=== PATIENT | male | born 1935 | race Caucasian/White ===

== ENCOUNTER 2018-01-02 07:45 | Day surgery (SDC) | payer MEDICARE ==
[~2018-01-02] VITALS: Ht 180.3 cm; Wt 80.1 kg
[~2018-01-02 07:45] MED LIST: ASPI-555 PO; ATOR20TA65 PO; CLOP75TA32 PO; CYAN25002 SL; LISI1TAB13 PO; METO25TA6 PO; MULT-603 PO; SODIUM CHLORIDE 0.9% 1000ML 1,000 ML IV ONE
[2018-01-02 07:56] VITALS: BP 106/77
[2018-01-02] MEDS ORDERED: PROPOFOL 10 MG/ML 20ML VIAL IV ONE (10:04)
[2018-01-02 10:40] VITALS: BP 75/43
== END 2018-01-02 11:10 | disposition home or self-care (01) ==
LOC: ENDO 07:45 → DAH 07:45 → ENDO 11:10
PROVIDERS: ATTEND Internal Medicine Gastroenterology
DX: Z12.11 Encounter for screening for malignant neoplasm of colon (principal); K57.30 Diverticulosis of large intestine without perforation or abscess without bleeding; K56.2 Volvulus; Z86.010 Personal history of colon polyps; I10 Essential (primary) hypertension; E78.5 Hyperlipidemia, unspecified; Z79.899 Other long term (current) drug therapy; Z68.24 Body mass index [BMI] 24.0-24.9, adult; Z82.49 Family history of ischemic heart disease and other diseases of the circulatory system; Z98.890 Other specified postprocedural states
CPT/HCPCS: 93005; G0105; J2704; J7030

== ENCOUNTER → 2022-05-07 | Outpatient (CLI) | payer MEDICARE ==
[~2022-05-07] MED LIST changes: -ASPI-555 PO; +CEPH500B PO; -CLOP75TA32 PO; +LACT1CAP78 PO; -LISI1TAB13 PO; +LISI1TAB53 PO; +REGADENOSON 0.4 MG/5 ML PF SYG IVP SCH; -SODIUM CHLORIDE 0.9% 1000ML 1,000 ML IV ONE
== END | disposition home or self-care (01) ==
LOC: SHCH 08:13
PROVIDERS: ATTEND Internal Medicine Cardiovascular Disease
DX: I25.119 Atherosclerotic heart disease of native coronary artery with unspecified angina pectoris (principal)
CPT/HCPCS: 78452; 96374; 93017; J2785; A9500 ×2

== ENCOUNTER → 2023-04-24 | Outpatient (CLI) | payer MEDICARE ==
[~2023-04-24] MED LIST changes: -REGADENOSON 0.4 MG/5 ML PF SYG IVP SCH
[2023-04-24 16:13] LABS: T4 (THYROXINE) 5.4 ug/dL (4.7-13.3); THYROID STIMULATING HORMONE 1.03 uIU/mL (0.36-3.74)
== END | disposition home or self-care (01) ==
LOC: LAB 11:42
PROVIDERS: ATTEND Physician Assistant
DX: I10 Essential (primary) hypertension (principal); E78.5 Hyperlipidemia, unspecified
CPT/HCPCS: 36415; 84436; 84443; 84479

== ENCOUNTER → 2023-04-29 | Outpatient (CLI) | payer MEDICARE ==
[~2023-04-29] MED LIST changes: +REGADENOSON 0.4 MG/5 ML PF SYG IVP ONE
== END | disposition home or self-care (01) ==
LOC: SHCH 08:42
PROVIDERS: ATTEND Internal Medicine Cardiovascular Disease
DX: I25.119 Atherosclerotic heart disease of native coronary artery with unspecified angina pectoris (principal)
CPT/HCPCS: 78452; 96374; 93017; J2785; A9500 ×2

== ENCOUNTER 2023-08-05 10:01 | Inpatient (IN) | payer MEDICARE ==
[~2023-08-05] VITALS: Ht 182.9 cm; Wt 72.6 kg
[~2023-08-05 10:01] MED LIST changes: -REGADENOSON 0.4 MG/5 ML PF SYG IVP ONE
[2023-08-05 10:54] LABS: HEMATOCRIT 48.6 % (42-54); MEAN CORPUSCULAR HEMOGLOBIN 34.1 pg (27.0-33.0); MEAN CORPUSCULAR HGB CONC 35.4 g/dL (32.0-36.0); MEAN CORPUSCULAR VOLUME 96.2 fL (79-99); RED BLOOD CELL COUNT(AUTO) 5.05 MIL/uL (4.50-6.20); RED CELL DISTRIBUTION WIDTH 13.8 % (11.0-15.5); WHITE BLOOD COUNT (AUTO) 18.8 K/uL (4.8-10.8)
[2023-08-05 11:05] LABS: CREATININE 1.2 mg/dL (0.5-1.5); POTASSIUM 3.9 mmol/L (3.5-5.1)
[2023-08-05 11:09] LABS: ALBUMIN 3.9 g/dL (3.5-5.0); BILIRUBIN,TOTAL 1.5 mg/dL (0.2-1.0); TOTAL PROTEIN, SERUM 7.7 g/dL (6.0-8.3)
[2023-08-05 12:48] LABS: APPEARANCE,URINE CLOUDY (CLEAR); BILIRUBIN,URINE NEGATIVE (NEGATIVE); COLOR,URINE YELLOW (YELLOW); GLUCOSE, URINE (UA) NEGATIVE (NEGATIVE); KETONES,URINE NEGATIVE (NEGATIVE); LEUKOCYTE ESTERASE ,URINE 500 Leu/uL (NEGATIVE); NITRATE,URINE NEGATIVE (NEGATIVE); OCCULT BLOOD,URINE LARGE (NEGATIVE); PROTEIN,URINE 20 mg/dL (NEGATIVE); UROBILINOGEN,URINE 0.2 mg/dL (0.2-1.0)
[2023-08-05 12:53] LABS: ADD UA MICROSCOPIC YES
[2023-08-05 13:08] LABS: BACTERIA,URINE FEW /HPF (None Seen); MUCUS,URINE MANY LPF (None Seen); RBC,URINE 26-50 /HPF (0-1); WBC,URINE TNTC /HPF (0-1)
[2023-08-05] MEDS ORDERED: CEPH500T PO (15:48)
[2023-08-05] MEDS ORDERED: CEFTRIAXONE 1G VIAL IVPB ONE (16:00)
[2023-08-05 17:36] LABS: SARS-CoV-2, RNA, NAAT NEGATIVE SARS CoV-2 (NEGATIVE)
[2023-08-05 17:41] LABS: INFLUENZA TYPE A Negative For Type A (NEGATIVE); INFLUENZA TYPE B Negative For Type B (NEGATIVE)
[2023-08-05] MEDS ORDERED: IOHEXOL-350 75 ML VIAL IV ONE (18:17)
[2023-08-05] MEDS ORDERED: IPRATROPIUM/ALBUTEROL SULFATE 3 ML SOLUTION IH ONE (19:00)
[2023-08-05] MEDS ORDERED: SOLU-MEDROL 125MG VIAL ONE (19:24)
[2023-08-05 19:25] VITALS: PULSE 105; RESP 20
[2023-08-05] MEDS ORDERED: SOLU-MEDROL 125MG VIAL IVP ONE (19:30)
[2023-08-05 19:32] LABS: ABG BASE EXCESS -2.4 mmol/L (-2.0-3.0); ABG HCO3 19.4 mmol/L (21.0-28.0); ABG OXYGEN SATURATION 86.5 % (95.0-99.0); ABG PCO2 27 mmHg (35-48); ABG PH 7.477 (7.35-7.450); CARBON MONOXIDE 0.9; HHb 13.3; PO2, ARTERIAL BG 47.4 mmHg (83.0-108.0); VENT MODE, BG NRB 100 (ROOM AIR)
[2023-08-05] MEDS ORDERED: ACETAMINOPHEN 325 MG TAB PO PRN ×2 (20:30)
[2023-08-05] MEDS ORDERED: ONDANSETRON 4MG INJ IV PRN (20:30)
[2023-08-05] MEDS: 0.9%NACL 1000ML 1,000 ML IV SCH (21:52)
[2023-08-05] MEDS: FAMOTIDINE 20MG VIAL IV SCH (21:52)
[2023-08-05] MEDS: IPRATROPIUM/ALBUTEROL SULFATE 3 ML SOLUTION IH SCH ×2 (22:00→23:18)
[2023-08-05 22:44] VITALS: BP 142/55; PULSE 110; RESP 23
[2023-08-05 23:18] VITALS: PULSE 102; RESP 20
[2023-08-06] VITALS (20 sets, daily range): BP systolic 114–175; BP diastolic 66–98; PULSE 57–128; RESP 17–24; O2SAT 92–98
[2023-08-06] MEDS: IPRATROPIUM/ALBUTEROL SULFATE 3 ML SOLUTION IH SCH ×6 (02:05→22:54)
[2023-08-06 04:06] LABS: BASOPHILS # (AUTO) 0.01 K/uL (0.00-0.20); BASOPHILS % (AUTO) 0.1 % (0.0-5.0); EOSINOPHILS # (AUTO) 0.01 K/uL (0.00-0.70); EOSINOPHILS % (AUTO) 0.1 % (0.0-8.0); HEMATOCRIT 43.7 % (42-54); IMMATURE GRANULOCYTE ABSOLUTE 0.09 K/uL (0-1); LYMPHOCYTES # (AUTO) 0.4 K/uL (1.0-4.8); LYMPHOCYTES % (AUTO) 2.7 % (21.0-51.0); MEAN CORPUSCULAR HEMOGLOBIN 33.1 pg (27.0-33.0); MEAN CORPUSCULAR HGB CONC 34.8 g/dL (32.0-36.0); MEAN CORPUSCULAR VOLUME 95.2 fL (79-99); MONOCYTES # (AUTO) 0.1 K/uL (0.1-1.0); MONOCYTES % (AUTO) 0.6 % (3.0-13.0); NEUTROPHILS # (AUTO) 14.2 K/uL (1.8-7.7); NEUTROPHILS % (AUTO) 95.9 % (40.0-77.0); PLATELET COUNT (AUTO) 174 K/uL (130-400); RED BLOOD CELL COUNT(AUTO) 4.59 MIL/uL (4.50-6.20); RED CELL DISTRIBUTION WIDTH 13.9 % (11.0-15.5); WHITE BLOOD COUNT (AUTO) 14.8 K/uL (4.8-10.8)
[2023-08-06 04:17] LABS: INR 1.06 (0.85-1.15); PARTIAL THROMBOPLASTIN TIME 26.8 SEC (26.3-35.5); PROTHROMBIN TIME 11.5 SEC (9.6-11.6)
[2023-08-06 04:22] LABS: ALBUMIN 3.1 g/dL (3.5-5.0); BILIRUBIN,DIRECT 0.2 mg/dL (0.0-0.3); BILIRUBIN,TOTAL 0.6 mg/dL (0.2-1.0); CREATININE 1.1 mg/dL (0.5-1.5); POTASSIUM 3.7 mmol/L (3.5-5.1); TOTAL PROTEIN, SERUM 6.9 g/dL (6.0-8.3)
[2023-08-06] MEDS: CEFTRIAXONE 2GM VIAL IVPB SCH (04:49)
[2023-08-06] MEDS: LACTULOSE 20 GM/30 ML UDCUP PO SCH ×2 (08:49→20:46)
[2023-08-06] MEDS: ENOXAPARIN SODIUM 30 MG/0.3 ML SQ SCH (08:51)
[2023-08-06] MEDS ORDERED: ASPI-1005 PO (10:21)
[2023-08-06] MEDS ORDERED: LISI5TAB21 PO (10:21)
[2023-08-06] MEDS ORDERED: CLOP75TA32 PO (10:21)
[2023-08-06] MEDS ORDERED: METO25TA6 PO (10:21)
[2023-08-06] MEDS: 0.9%NACL 1000ML 1,000 ML IV SCH ×2 (11:03→20:45)
[2023-08-06] MEDS ORDERED: AZITHROMYCIN 250 MG TABLET PO SCH (15:30)
[2023-08-06] MEDS: FAMOTIDINE 20MG VIAL IV SCH (20:46)
[2023-08-06] MEDS ORDERED: LABETALOL 20MG SYG IV ONE (21:30)
[2023-08-07] VITALS (11 sets, daily range): BP systolic 125–159; BP diastolic 64–91; PULSE 67–168; RESP 16–20; O2SAT 93–96
[2023-08-07] MEDS: IPRATROPIUM/ALBUTEROL SULFATE 3 ML SOLUTION IH SCH ×4 (02:31→13:58)
[2023-08-07] MEDS: CEFTRIAXONE 2GM VIAL IVPB SCH (04:46)
[2023-08-07 05:24] LABS: BASOPHILS # (AUTO) 0.03 K/uL (0.00-0.20); BASOPHILS % (AUTO) 0.2 % (0.0-5.0); EOSINOPHILS # (AUTO) 0.07 K/uL (0.00-0.70); EOSINOPHILS % (AUTO) 0.4 % (0.0-8.0); HEMATOCRIT 45.3 % (42-54); IMMATURE GRANULOCYTE ABSOLUTE 0.15 K/uL (0-1); LYMPHOCYTES # (AUTO) 2.1 K/uL (1.0-4.8); LYMPHOCYTES % (AUTO) 10.8 % (21.0-51.0); MEAN CORPUSCULAR HEMOGLOBIN 34.3 pg (27.0-33.0); MEAN CORPUSCULAR HGB CONC 35.1 g/dL (32.0-36.0); MEAN CORPUSCULAR VOLUME 97.6 fL (79-99); MONOCYTES # (AUTO) 0.9 K/uL (0.1-1.0); MONOCYTES % (AUTO) 4.8 % (3.0-13.0); NEUTROPHILS # (AUTO) 16.1 K/uL (1.8-7.7); PLATELET COUNT (AUTO) 217 K/uL (130-400); RED BLOOD CELL COUNT(AUTO) 4.64 MIL/uL (4.50-6.20); WHITE BLOOD COUNT (AUTO) 19.4 K/uL (4.8-10.8)
[2023-08-07 05:37] LABS: CREATININE 1.1 mg/dL (0.5-1.5); MAGNESIUM 2.2 mg/dL (1.80-2.40); POTASSIUM 3.4 mmol/L (3.5-5.1)
[2023-08-07] MEDS: LACTULOSE 20 GM/30 ML UDCUP PO SCH (10:32)
[2023-08-07] MEDS: ENOXAPARIN SODIUM 30 MG/0.3 ML SQ SCH (10:32)
[2023-08-07] MEDS ORDERED: CEFU250T87 PO (14:18)
[2023-08-07] MEDS ORDERED: AZIT250T PO (14:21)
== END 2023-08-07 16:45 | disposition home or self-care (01) | DRG 193 ==
LOC: EDH 10:01 → 2AH 20:21 → 3DH 08-06 13:05
PROVIDERS: ADMIT Internal Medicine; ATTEND Internal Medicine
DX: J18.9 Pneumonia, unspecified organism (principal); J96.01 Acute respiratory failure with hypoxia; E87.1 Hypo-osmolality and hyponatremia; E87.3 Alkalosis; J98.11 Atelectasis; N30.00 Acute cystitis without hematuria; Z20.822 Contact with and (suspected) exposure to COVID-19; E86.0 Dehydration; I71.21 Aneurysm of the ascending aorta, without rupture; I10 Essential (primary) hypertension; I25.10 Atherosclerotic heart disease of native coronary artery without angina pectoris; K57.30 Diverticulosis of large intestine without perforation or abscess without bleeding; E78.5 Hyperlipidemia, unspecified; I71.40 Abdominal aortic aneurysm, without rupture, unspecified; Z96.642 Presence of left artificial hip joint; N28.1 Cyst of kidney, acquired; Z82.3 Family history of stroke; Z82.49 Family history of ischemic heart disease and other diseases of the circulatory system; Z79.899 Other long term (current) drug therapy
CPT/HCPCS: 36415; 36600; 71045; 71270; 74176; 80048; 80053; 80076; 81001; 82435; 82803; 82947; 82977; 83605; 83735; 83880; 84100; 84132; 84295; 84484; 85018; 85025; 85027; 85610; 85730; 87040; 87077; 87088; 87186; 87635; 87804; 93005; 93306; 94640; 94664; 94760; 96365; 96375; A4606; C9803; G0378; J0696; J1650; J2930; J3490; J7030; Q9967; A4600